=== PATIENT | male | born 1980 | race Hispanic/Latino ===

== ENCOUNTER 2018-10-01 19:42 | Inpatient (IN) | payer OTHER ==
[2018-10-01] MEDS ORDERED: ATIVAN ONE (19:53)
[2018-10-01] MEDS ORDERED: KEPPRA 1,000 MG/NS 0.75% 100ML 1,000 MG/100 ML BAG IV ONE ×2 (19:55→19:56)
[2018-10-01] MEDS ORDERED: NACL 0.9% 1000 ML 1,000 ML IV ONE (19:56)
[2018-10-01] MEDS ORDERED: ATIVAN IV ONE (20:01)
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
[2018-10-01 20:52] LABS: Basophils # (Auto) 0.1 K/mm3 (0.0-0.1); Basophils % (Auto) 0.9 % (0.0-1.8); Eosinophils # (Auto) 0.1 K/mm3 (0.0-0.4); Eosinophils % (Auto) 0.6 % (0.0-4.3); Hematocrit 38.1 % (35.5-45.6); Hemoglobin 12.3 gm/dl (11.8-15.2); Lymphocytes # (Auto) 1.5 K/mm3 (1.2-5.4); Lymphocytes % (Auto) 18.4 % (13.4-35.0); Mean Corpuscular HGB Conc 32 % (32-34); Mean Corpuscular Volume 86 fl (84-94); Monocytes # (Auto) 0.5 K/mm3 (0.0-0.8); Monocytes % (Auto) 5.7 % (0.0-7.3); Platelet Count 247 K/mm3 (140-440); Red Blood Count 4.42 M/mm3 (3.65-5.03); Red Cell Distribution Width 15.6 % (13.2-15.2)
--- NOTE | 2018-10-01 20:57 | Cat Scan Report ---
CT HEAD WITHOUT CONTRAST INDICATION / CLINICAL INFORMATION: Seizures. TECHNIQUE: All CT scans at this location are performed using CT dose reduction for ALARA by means of automated e xposure control. COMPARISON: None available. FINDINGS: HEMORRHAGE: No evidence of intracranial hemorrhage or extra-axial fluid collection. EXTRA-AXIAL SPACES: Cortical sulci, sylvian fissures and basilar cisterns have an unremarkable appear ance. VENTRICULAR SYSTEM: The ventricular system is of normal size and configuration. CEREBRAL PARENCHYMA: No areas of abnormal brain parenchymal attenuation are identified. There is no i ndication of recent infarction. MIDLINE SHIFT OR HERNIATION: There is no mass effect. CEREBELLUM / BRAINSTEM: Brainstem and cerebellum have an unremarkable appearance. INTRACRANIAL VESSELS:No abnormalities are identified on this noncontrast head CT. ORBITS: Findings indicate remote repair of left inferior orbital rim fracture. The orbits have an oth erwise unremarkable appearance. SOFT TISSUES of HEAD: No significant abnormality. CALVARIUM: Evaluation of bone windows reveals no abnormalities. PARANASAL SINUSES / MASTOID AIR CELLS: Paranasal sinuses are free from inflammatory mucosal disease. Mastoid air cells are normally pneumatized. IMPRESSION: 1. No acute intracranial abnormality. Negative head CT without contrast. Signer Name: Darshan Arias MD Signed: 10/01/2018 8:52 PM Workstation Name: [id number]
--- NOTE | 2018-10-01 20:59 | Cat Scan Report ---
CT CERVICAL SPINE WITHOUT CONTRAST INDICATION / CLINICAL INFORMATION: fall, seizures. TECHNIQUE: Axial CT images were obtained through the cervical spine. Sagittal and coronal reformatted images wer e produced. All CT scans at this location are performed using CT dose reduction for ALARA by means of automated exposure control. COMPARISON: None available. FINDINGS: ALIGNMENT: No significant abnormality. VERTEBRAE: No indication of fracture or other osseous abnormality. DISC SPACES: No significant abnormality. CRANIOCERVICAL JUNCTION:No significant abnormality. SPINAL CANAL: No significant abnormality. Central spinal canal is adequately maintained throughout th e cervical region. PARASPINAL SOFT TISSUES: No significant abnormality. ADDITIONAL FINDINGS: None. LUNG APICES: No significant abnormality of visualized lungs. IMPRESSION: 1. No abnormality identified on CT cervical spine. Signer Name: Darshan Arias MD Signed: 10/01/2018 8:55 PM Workstation Name: [id number]
[2018-10-01 21:17] LABS: Bilirubin,Urine NEG (Negative); Blood,Urine NEG (Negative); Calcium Oxalate Crystals,Urine FEW; Color,Urine Yellow (Yellow); Mucus,Urine FEW /HPF; Protein,Urine <15 mg/dL mg/dL (Negative); Urobilinogen,Urine < 2.0 mg/dL (<2.0)
[2018-10-01 21:24] LABS: Amphetamine Screen,Urine PRESUMPTIVE NEGATIVE; Cannabinoid Screen,Urine PRESUMPTIVE NEGATIVE; Cocaine Screen,Urine PRESUMPTIVE NEGATIVE; Methadone Screen,Urine PRESUMPTIVE NEGATIVE; Opiate Screen,Urine PRESUMPTIVE NEGATIVE
[2018-10-01 21:25] LABS: Alanine Aminotransferase 20 units/L (7-56); BUN/Creatinine Ratio 15; Blood Urea Nitrogen 15 mg/dL (9-20); Calcium 8.9 mg/dL (8.4-10.2); Hemolysis Index 36
[2018-10-01 22:01] LABS: Benzodiazepines Screen,Urine PRESUMPTIVE POSITIVE
[2018-10-01] MEDS ORDERED: ZOFRAN IV PRN (23:03)
[2018-10-01] MEDS: TYLENOL PO PRN (23:23)
[2018-10-02] MEDS ORDERED: NEURONTIN PO ONE (01:51)
[2018-10-02] MEDS ORDERED: NEURONTIN PO SCH (02:00)
[2018-10-02] MEDS: ATIVAN IV PRN ×2 (02:11→17:27)
[2018-10-02] MEDS ORDERED: NON-FORMULARY (Clonazepam [Klonopin] 2 MG) PO SCH (02:30)
--- NOTE | 2018-10-02 05:21 | History and Physical Report ---
CHIEF COMPLAINT: Seizure attack. HISTORY OF PRESENTING ILLNESS: The patient is a 38-year-old male, who was noted to be having seizure attack at the pharmacy across the street from the hospital and had recurrent attacks and was brought in by EMS and continued to have seizure attack in the Emergency Room. The patient admitted to missing his medications for about 3 days that included the seizure medications, and said he ran out for a period of 3 days, and then started having the seizure attack. The patient said he had not had any seizure in 6 months until 10/01/2018. There was no history of fever or chills and no history of injury to the body or facial area. The patient denied history of ingestion of alcohol prior to the seizure attack. PAST MEDICAL HISTORY: Pertinent for seizure disorder. PAST SURGICAL HISTORY: Unremarkable. FAMILY HISTORY: Noncontributory. SOCIAL HISTORY: The patient denies use of illicit drugs. Denies alcohol ingestion or cigarette smoking. MEDICATIONS: The patient's medications include baclofen 20 mg by mouth 3 times daily, buprenorphine 8 mg sublingual t.i.d. The patient is also on clonazepam 2 mg by mouth twice daily, gabapentin 800 mg by mouth 3 times daily, Paxil 20 mg by mouth daily, and Seroquel 20 mg by mouth daily, as well as Benadryl 50 mg by mouth daily. ALLERGIES: THE PATIENT IS ALLERGIC TO PENICILLIN, PHENYTOIN, AND CHLORPROMAZINE. REVIEW OF SYSTEMS: CONSTITUTIONAL: There is no fever, no chills, no diaphoresis. HEENT: There is no headache or sore throat. CARDIOVASCULAR SYSTEM: There is no chest pain or orthopnea. RESPIRATORY SYSTEM: There is no shortness of breath or cough. GASTROINTESTINAL SYSTEM: There is no nausea, no vomiting, no abdominal pain, diarrhea or constipation. NEUROLOGICAL SYSTEM: There is no numbness, no dizziness. Seizure attack noted and change in mental status following seizure attack noted. MUSCULOSKELETAL SYSTEM: There is no joint pain or swelling. DERMATOLOGICAL SYSTEM: There is no skin rash, no skin bruises, and no itching. GENITOURINARY SYSTEM: There is no dysuria or hematuria or flank pain. Rest of system review is normal. PHYSICAL EXAMINATION: GENERAL: At the time of exam, the patient was found to be alert, oriented x 3 and not in acute distress. VITAL SIGNS: At the initial time of presentation, show pulse of 110, respirations 13, blood pressure 133/83, O2 sat of 97% on room air. HEENT: Showed pupils to be equal, round, reactive to light and accommodating and the head is normocephalic, atraumatic. NECK: Supple with no JVD or carotid bruit. CARDIOVASCULAR SYSTEM: Showed normal first and second heart sounds with no gallops or murmurs. RESPIRATORY SYSTEM: Showed good air entry on both sides of the lungs with no abnormal breath sounds. GASTROINTESTINAL SYSTEM: Show abdomen to be full, soft, nontender with no organomegaly or rigidity. NEUROLOGIC: Shows no focal deficit. MUSCULOSKELETAL SYSTEM: Show no joint swelling or tenderness. DERMATOLOGICAL SYSTEM: Show no skin rash or bruises. GENITOURINARY SYSTEM: Show no costovertebral angle tenderness. PERTINENT LABORATORY AND IMAGING STUDIES: The patient had a CT of the head without contrast done that shows no acute intracranial abnormality. Also, the patient has CT of the cervical spine without contrast that shows no abnormality. The patient's lab result shows a CBC, which was unremarkable except for slight increase in segmented neutrophil on CBC differential. The patient's chemistry shows slightly increasing chloride level of 109.6, otherwise unremarkable. The patient's urinalysis showed high specific gravity of 1.032 with rest of urinalysis being unremarkable. Toxicology screen is positive for benzodiazepine. The patient's alcohol level is unremarkable. DIAGNOSIS: Postictal state or post-seizure state. PLAN OF CARE: 1. The patient will be admitted to telemetry. 2. The patient will be on IV Ativan 1 mg every 2 hours as needed for seizure attack. 3. The patient will be on p.r.n. medications like Tylenol 650 mg by mouth every 4 hours for fever and headache and IV Zofran 4 mg every 8 hours for nausea and vomiting. 4. The patient will be on his home medication as shown in the medication reconciliation section. 5. The patient's DVT prophylaxis will be through sequential compressive device and the patient will have neurology consult when available since neurology rounds and not done during weekends. JOB# [id number] OCN/NTS
[2018-10-02] MEDS: LIORESAL PO SCH ×3 (06:03→21:10)
[2018-10-02] MEDS ORDERED: BACLOFEN 20 MG PO SCH (08:00)
[2018-10-02] MEDS ORDERED: NON-FORMULARY (Gabapentin [Neurontin] 800 MG) PO SCH (08:00)
[2018-10-02] MEDS: PAXIL PO SCH (09:24)
[2018-10-02] MEDS: NEURONTIN PO SCH ×3 (09:24→21:09)
[2018-10-02] MEDS ORDERED: KEPPRA PO SCH (10:00)
[2018-10-02] MEDS ORDERED: PAXIL 20 MG PO SCH (10:00)
[2018-10-02] MEDS: SUBUTEX SL SCH ×3 (10:37→21:13)
--- NOTE | 2018-10-02 15:27 | Progress Note ---
Assessment and Plan - Patient Problems (1) Recurrent seizures Current Visit: Yes Status: Acute Plan to address problem: Recurrent seizure disorder. Patient now being started on Keppra. Would titrate as needed. Ativan when necessary for seizure. Has not needed any in the past 12 hours. Continue Keppra at this point. Titrate to therapeutic levels. Cervical CT head CT unremarkable. History Interval history: Patient states he had an additional seizure over the nighttime. Nervous about having another one tonight. Hospitalist Physical - Constitutional Vitals: Temp Pulse Resp BP Pulse Ox 98.4 F 77 14 118/80 95 10/02/18 12:55 10/02/18 12:55 10/02/18 12:55 10/02/18 12:55 10/02/18 12:55 General appearance: Present: no acute distress - EENT Eyes: Present: PERRL, EOM intact ENT: hearing intact, clear oral mucosa, dentition normal - Neck Neck: Present: supple, normal ROM - Respiratory Respiratory: bilateral: CTA - Cardiovascular Rhythm: regular - Extremities Extremities: no ischemia, pulses intact, pulses symmetrical, No edema, normal temperature - Abdominal General gastrointestinal: soft, non-tender, non-distended, normal bowel sounds - Integumentary Integumentary: Present: clear, warm, dry - Psychiatric Psychiatric: appropriate mood/affect, intact judgment & insight, memory intact - Neurologic Neurologic: CNII-XII intact, focal deficits, moves all extremities Results - Labs CBC & Chem 7: 10/01/18 20:33 10/01/18 20:33 Labs: Laboratory Last Values WBC 8.2 K/mm3 (4.5-11.0) 10/01/18 20:33 RBC 4.42 M/mm3 (3.65-5.03) 10/01/18 20:33 Hgb 12.3 gm/dl (11.8-15.2) 10/01/18 20:33 Hct 38.1 % (35.5-45.6) 10/01/18 20:33 MCV 86 fl (84-94) 10/01/18 20:33 MCH 28 pg (28-32) 10/01/18 20:33 MCHC 32 % (32-34) 10/01/18 20:33 RDW 15.6 % (13.2-15.2) H 10/01/18 20:33 Plt Count 247 K/mm3 (140-440) 10/01/18 20:33 Lymph % (Auto) 18.4 % (13.4-35.0) 10/01/18 20:33 [place] % (Auto) 5.7 % (0.0-7.3) 10/01/18 20:33 Eos % (Auto) 0.6 % (0.0-4.3) 10/01/18 20:33 Baso % (Auto) 0.9 % (0.0-1.8) 10/01/18 20:33 Lymph # 1.5 K/mm3 (1.2-5.4) 10/01/18 20:33 [place] # 0.5 K/mm3 (0.0-0.8) 10/01/18 20:33 Eos # 0.1 K/mm3 (0.0-0.4) 10/01/18 20:33 Baso # 0.1 K/mm3 (0.0-0.1) 10/01/18 20:33 Seg Neutrophils % 74.4 % (40.0-70.0) H 10/01/18 20:33 Seg Neutrophils # 6.1 K/mm3 (1.8-7.7) 10/01/18 20:33 Sodium 143 mmol/L (137-145) 10/01/18 20:33 Potassium 3.8 mmol/L (3.6-5.0) 10/01/18 20:33 Chloride 109.6 mmol/L (98-107) H 10/01/18 20:33 Carbon Dioxide 22 mmol/L (22-30) 10/01/18 20:33 15 mmol/L 10/01/18 20:33 BUN 15 mg/dL (9-20) 10/01/18 20:33 1.0 mg/dL (0.8-1.5) 10/01/18 20:33 Estimated GFR > 60 ml/min 10/01/18 20:33 15 % 10/01/18 20:33 Glucose 83 mg/dL (75-100) 10/01/18 20:33 Calcium 8.9 mg/dL (8.4-10.2) 10/01/18 20:33 < 0.20 mg/dL (0.1-1.2) 10/01/18 20:33 AST 15 units/L (5-40) 10/01/18 20:33 ALT 20 units/L (7-56) 10/01/18 20:33 73 units/L (35-129) 10/01/18 20:33 46.0 umol/L (25-60) 10/01/18 20:33 78 units/L (55-170) 10/01/18 20:33 6.7 g/dL (6.3-8.2) 10/01/18 20:33 4.0 g/dL (3.9-5) 10/01/18 20:33 1.5 % 10/01/18 20:33 TSH 1.400 mlU/mL (0.270-4.200) 10/01/18 20:33 Yellow (Yellow) 10/01/18 21:00 Clear (Clear) 10/01/18 21:00 5.0 (5.0-7.0) 10/01/18 21:00 Ur Specific [place] 1.032 (1.003-1.030) H 10/01/18 21:00 <15 mg/dl mg/dL (Negative) 10/01/18 21:00 Neg mg/dL (Negative) 10/01/18 21:00 Neg mg/dL (Negative) 10/01/18 21:00 Neg (Negative) 10/01/18 21:00 Neg (Negative) 10/01/18 21:00 Neg (Negative) 10/01/18 21:00 < 2.0 mg/dL (<2.0) 10/01/18 21:00 Ur Leukocyte Esterase Neg (Negative) 10/01/18 21:00 1.0 /HPF (0.0-6.0) 10/01/18 21:00 2.0 /HPF (0.0-6.0) 10/01/18 21:00 Calcium Oxalate Crystal Few 10/01/18 21:00 Few /HPF 10/01/18 21:00 Salicylates 2.8 mg/dL (2.8-20.0) 10/01/18 20:33 Presumptive negative 10/01/18 21:00 Presumptive negative 10/01/18 21:00 Acetaminophen < 5.0 ug/mL (10.0-30.0) L 10/01/18 20:33 Ur Barbiturates Screen Presumptive negative 10/01/18 21:00 Ur Phencyclidine Scrn Presumptive negative 10/01/18 21:00 Ur Amphetamines Screen Presumptive negative 10/01/18 21:00 U Benzodiazepines Scrn Presumptive positive 10/01/18 21:00 Presumptive negative 10/01/18 21:00 U Marijuana (THC) Screen Presumptive negative 10/01/18 21:00 Disclamer 10/01/18 21:00 Plasma/Serum Alcohol < 0.01 % (0-0.07) 10/01/18 20:33 Active Medications - Current Medications Current Medications: Generic Name Dose Route Start Last Admin Trade Name Freq PRN Reason Stop Dose Admin Acetaminophen 650 mg 10/01/18 23:01 10/01/18 23:23 Tylenol PO 650 mg Q4H PRN Administration Headache Baclofen 20 mg 10/02/18 06:00 10/02/18 06:03 Lioresal PO 20 mg Q8HR DARIAN Administration Buprenorphine HCl 8 mg 10/02/18 08:00 10/02/18 10:37 Subutex SL 8 mg TID DARIAN Administration Clonazepam 2 mg 10/02/18 10:00 10/02/18 09:24 Klonopin PO 2 mg BID DARIAN Administration Gabapentin 800 mg 10/02/18 08:00 10/02/18 09:24 Neurontin PO 800 mg TID DARIAN Administration Gabapentin 800 mg 10/02/18 02:00 10/02/18 02:10 Neurontin PO 800 mg ONCE DARIAN Administration Lorazepam 1 mg 10/01/18 23:02 10/02/18 02:11 Ativan IV 1 mg Q2H PRN Administration Seizures Ondansetron HCl 4 mg 10/01/18 23:03 Zofran IV Q8H PRN Nausea And Vomiting Paroxetine HCl 20 mg 10/02/18 10:00 10/02/18 09:24 Paxil PO 20 mg DAILY DARIAN Administration Quetiapine Fumarate 25 mg 10/02/18 22:00 Seroquel PO QHS DARIAN
[2018-10-02] MEDS: TYLENOL PO PRN (15:33)
[2018-10-02] MEDS: BENADRYL PO PRN (21:11)
[2018-10-03] MEDS: LIORESAL PO SCH ×3 (05:19→22:30)
[2018-10-03] MEDS: NEURONTIN PO SCH ×3 (08:27→20:30)
[2018-10-03] MEDS: SUBUTEX SL SCH ×3 (08:27→20:32)
[2018-10-03] MEDS: TYLENOL PO PRN ×2 (08:30→12:31)
[2018-10-03] MEDS: PAXIL PO SCH (09:14)
[2018-10-03] MEDS: ATIVAN IV PRN ×2 (12:05→16:40)
[2018-10-03] MEDS: BENADRYL PO PRN ×2 (12:32→20:30)
--- NOTE | 2018-10-03 16:22 | Progress Note ---
Assessment and Plan - Patient Problems (1) Recurrent seizures Current Visit: Yes Status: Acute Plan to address problem: She'll with another seizure today. We'll continue Keppra 500 mg twice a day in addition. Await any neurology recommendations. (2) Depression Current Visit: Yes Status: Acute Plan to address problem: She currently denies depression continue SSRI (3) Headache Current Visit: Yes Status: Acute Plan to address problem: No focal neurologic deficits. Headache most likely secondary to the seizure. We'll continue Ativan For seizure Fioricet for headache. Need to probably discontinue baclofen also a lower seizure threshold History Interval history: Patient had an additional seizure at 1145 today. Given Ativan symptoms appear to be controlled. Patient states now she agrees to wear nicotine patch. Also complained of headache and pain. The headache. Note the patient was on Subutex for narcotic abuse. Would treat patient with tramadol vs fiorcet Hospitalist Physical - Constitutional Vitals: Temp Pulse Resp BP Pulse Ox 98.0 F 72 19 130/84 99 10/03/18 16:16 10/03/18 16:16 10/03/18 16:16 10/03/18 16:16 10/03/18 16:16 General appearance: Present: no acute distress - EENT Eyes: Present: PERRL, EOM intact ENT: hearing intact, clear oral mucosa, dentition normal - Neck Neck: Present: supple, normal ROM - Respiratory Respiratory effort: normal Respiratory: bilateral: CTA - Cardiovascular Rhythm: regular Heart Sounds: Present: S1 & S2 - Extremities Extremities: no ischemia, pulses intact, pulses symmetrical, No edema, normal temperature, normal color, Full ROM Peripheral Pulses: within normal limits - Abdominal General gastrointestinal: soft, non-tender, non-distended, normal bowel sounds - Integumentary Integumentary: Present: clear, warm, dry - Psychiatric Psychiatric: appropriate mood/affect, intact judgment & insight, memory intact - Neurologic Neurologic: CNII-XII intact, focal deficits, moves all extremities Results - Labs CBC & Chem 7: 10/01/18 20:33 10/01/18 20:33 Labs: Laboratory Last Values WBC 8.2 K/mm3 (4.5-11.0) 10/01/18 20:33 RBC 4.42 M/mm3 (3.65-5.03) 10/01/18 20:33 Hgb 12.3 gm/dl (11.8-15.2) 10/01/18 20:33 Hct 38.1 % (35.5-45.6) 10/01/18 20:33 MCV 86 fl (84-94) 10/01/18 20:33 MCH 28 pg (28-32) 10/01/18 20:33 MCHC 32 % (32-34) 10/01/18 20:33 RDW 15.6 % (13.2-15.2) H 10/01/18 20:33 Plt Count 247 K/mm3 (140-440) 10/01/18 20:33 Lymph % (Auto) 18.4 % (13.4-35.0) 10/01/18 20:33 [place] % (Auto) 5.7 % (0.0-7.3) 10/01/18 20:33 Eos % (Auto) 0.6 % (0.0-4.3) 10/01/18 20:33 Baso % (Auto) 0.9 % (0.0-1.8) 10/01/18 20:33 Lymph # 1.5 K/mm3 (1.2-5.4) 10/01/18 20:33 [place] # 0.5 K/mm3 (0.0-0.8) 10/01/18 20:33 Eos # 0.1 K/mm3 (0.0-0.4) 10/01/18 20:33 Baso # 0.1 K/mm3 (0.0-0.1) 10/01/18 20:33 Seg Neutrophils % 74.4 % (40.0-70.0) H 10/01/18 20:33 Seg Neutrophils # 6.1 K/mm3 (1.8-7.7) 10/01/18 20:33 Sodium 143 mmol/L (137-145) 10/01/18 20:33 Potassium 3.8 mmol/L (3.6-5.0) 10/01/18 20:33 Chloride 109.6 mmol/L (98-107) H 10/01/18 20:33 Carbon Dioxide 22 mmol/L (22-30) 10/01/18 20:33 15 mmol/L 10/01/18 20:33 BUN 15 mg/dL (9-20) 10/01/18 20:33 1.0 mg/dL (0.8-1.5) 10/01/18 20:33 Estimated GFR > 60 ml/min 10/01/18 20:33 15 % 10/01/18 20:33 Glucose 83 mg/dL (75-100) 10/01/18 20:33 Calcium 8.9 mg/dL (8.4-10.2) 10/01/18 20:33 < 0.20 mg/dL (0.1-1.2) 10/01/18 20:33 AST 15 units/L (5-40) 10/01/18 20:33 ALT 20 units/L (7-56) 10/01/18 20:33 73 units/L (35-129) 10/01/18 20:33 46.0 umol/L (25-60) 10/01/18 20:33 78 units/L (55-170) 10/01/18 20:33 6.7 g/dL (6.3-8.2) 10/01/18 20:33 4.0 g/dL (3.9-5) 10/01/18 20:33 1.5 % 10/01/18 20:33 TSH 1.400 mlU/mL (0.270-4.200) 10/01/18 20:33 Yellow (Yellow) 10/01/18 21:00 Clear (Clear) 10/01/18 21:00 5.0 (5.0-7.0) 10/01/18 21:00 Ur Specific [place] 1.032 (1.003-1.030) H 10/01/18 21:00 <15 mg/dl mg/dL (Negative) 10/01/18 21:00 Neg mg/dL (Negative) 10/01/18 21:00 Neg mg/dL (Negative) 10/01/18 21:00 Neg (Negative) 10/01/18 21:00 Neg (Negative) 10/01/18 21:00 Neg (Negative) 10/01/18 21:00 < 2.0 mg/dL (<2.0) 10/01/18 21:00 Ur Leukocyte Esterase Neg (Negative) 10/01/18 21:00 1.0 /HPF (0.0-6.0) 10/01/18 21:00 2.0 /HPF (0.0-6.0) 10/01/18 21:00 Calcium Oxalate Crystal Few 10/01/18 21:00 Few /HPF 10/01/18 21:00 Salicylates 2.8 mg/dL (2.8-20.0) 10/01/18 20:33 Presumptive negative 10/01/18 21:00 Presumptive negative 10/01/18 21:00 Acetaminophen < 5.0 ug/mL (10.0-30.0) L 10/01/18 20:33 Ur Barbiturates Screen Presumptive negative 10/01/18 21:00 Ur Phencyclidine Scrn Presumptive negative 10/01/18 21:00 Ur Amphetamines Screen Presumptive negative 10/01/18 21:00 U Benzodiazepines Scrn Presumptive positive 10/01/18 21:00 Presumptive negative 10/01/18 21:00 U Marijuana (THC) Screen Presumptive negative 10/01/18 21:00 Disclamer 10/01/18 21:00 Plasma/Serum Alcohol < 0.01 % (0-0.07) 10/01/18 20:33 Active Medications - Current Medications Current Medications: Generic Name Dose Route Start Last Admin Trade Name Freq PRN Reason Stop Dose Admin Acetaminophen 650 mg 10/01/18 23:01 10/03/18 12:31 Tylenol PO 650 mg Q4H PRN Administration Headache Baclofen 20 mg 10/02/18 06:00 10/03/18 13:59 Lioresal PO 20 mg Q8HR DARIAN Administration Buprenorphine HCl 8 mg 10/02/18 08:00 10/03/18 13:59 Subutex SL 8 mg TID DARIAN Administration Clonazepam 2 mg 10/02/18 10:00 10/03/18 09:14 Klonopin PO 2 mg BID DARIAN Administration Diphenhydramine HCl 100 mg 10/02/18 19:31 10/03/18 12:32 Benadryl PO 100 mg QHS PRN Administration Sleep Gabapentin 800 mg 10/02/18 08:00 10/03/18 14:00 Neurontin PO 800 mg TID DARIAN Administration Gabapentin 800 mg 10/02/18 02:00 10/02/18 02:10 Neurontin PO 800 mg ONCE DARIAN Administration Lorazepam 1 mg 10/01/18 23:02 10/03/18 12:05 Ativan IV 1 mg Q2H PRN Administration Seizures Ondansetron HCl 4 mg 10/01/18 23:03 Zofran IV Q8H PRN Nausea And Vomiting Paroxetine HCl 20 mg 10/02/18 10:00 10/03/18 09:14 Paxil PO 20 mg DAILY DARIAN Administration Quetiapine Fumarate 25 mg 10/02/18 22:00 10/02/18 21:11 Seroquel PO 25 mg QHS DARIAN Administration
[2018-10-03] MEDS: FIORICET PO PRN ×2 (16:50→20:32)
[2018-10-03] MEDS ORDERED: HABITROL TD ONE (17:20)
--- NOTE | 2018-10-03 17:34 | Progress Note ---
Subjective Date of service: 10/03/18 Interval history: witnerssed seizures and CT of head normal will check EEG thursday agree with w/u will follow up Objective - Vital Sign Vital Signs - 12hr 10/03/18 10/03/18 10/03/18 08:00 10:00 11:51 Temperature 97.7 F Pulse Rate 81 64 69 Pulse Rate [ 81 Apical] Pulse Rate [ 81 Left Radial] Pulse Rate [ 81 Right Radial] Respiratory 16 19 Rate Blood Pressure 109/70 123/71 Blood Pressure [Left] O2 Sat by Pulse 97 98 99 Oximetry 10/03/18 10/03/18 10/03/18 12:00 16:02 16:16 Temperature 98.0 F 98.0 F Pulse Rate 72 69 72 Pulse Rate [ Apical] Pulse Rate [ Left Radial] Pulse Rate [ Right Radial] Respiratory 19 19 Rate Blood Pressure 130/84 Blood Pressure 123/71 130/84 [Left] O2 Sat by Pulse 96 99 Oximetry - Laboratory Findings CBC and BMP: 10/01/18 20:33 10/01/18 20:33 Abnormal Lab Findings: Abnormal Labs 10/01/18 10/01/18 10/01/18 20:33 20:33 20:33 RDW 15.6 H Seg Neutrophils % 74.4 H Chloride 109.6 H Ur Specific [place] Acetaminophen < 5.0 L 10/01/18 21:00 RDW Seg Neutrophils % Chloride Ur Specific [place] 1.032 H Acetaminophen
[2018-10-03] MEDS: KEPPRA PO SCH (22:30)
[2018-10-04] MEDS: FIORICET PO PRN ×4 (05:01→21:35)
[2018-10-04] MEDS: LIORESAL PO SCH ×3 (06:53→21:35)
[2018-10-04] MEDS: NEURONTIN PO SCH ×3 (09:25→20:26)
[2018-10-04] MEDS: SUBUTEX SL SCH ×4 (09:26→20:59)
[2018-10-04] MEDS: KEPPRA PO SCH ×2 (09:26→21:36)
[2018-10-04] MEDS: PAXIL PO SCH (09:26)
[2018-10-04] MEDS: ATIVAN IV PRN ×2 (10:38→20:05)
--- NOTE | 2018-10-04 10:43 | Progress Note ---
Assessment and Plan Assessment and plan: 38-year-old male was admitted to emergency department with history of patient having some witnessed seizures outside in the parking lot. The patient is also had multiple seizures since arrival to the emergency department, also witnessed by ER staff. The patient is evaluated by neurology , seizure precautions , antiepileptic medications , pending EEG --Recurrent seizures Current Visit: Yes Status: Acute Plan to address problem: Patient had some seizures yesterday ,continue Keppra 500 mg twice a day in addition. Neurology evaluation noted and appreciated, follow EEG Patient cannot drive --History of Depression Current Visit: Yes Status: Acute Plan to address problem: She currently denies depression continue SSRI Denies suicidal thoughts or ideation --Headache; postictal symptoms Current Visit: Yes Status: Acute Plan to address problem: continue supportive care, no neurologic deficit --DVT prophylaxis; Lovenox Follow EEG and neuro recommendations Disposition ;Possible discharge in 1-2 days if stable History Interval history: She was admitted with weakness seizures Continues to have intermittent seizures in the hospital On antiepileptic medications Patient is alert and oriented 3 Complaints of some vague headache Vital signs noted Hospitalist Physical - Constitutional Vitals: Temp Pulse Resp BP Pulse Ox 97.2 F L 72 16 113/76 98 10/04/18 07:31 10/04/18 07:31 10/04/18 07:31 10/04/18 07:31 10/04/18 07:31 General appearance: Present: no acute distress, well-nourished - EENT Eyes: Present: PERRL, EOM intact - Neck Neck: Present: supple, normal ROM - Respiratory Respiratory effort: normal Respiratory: bilateral: diminished, negative: rales, rhonchi, wheezing - Cardiovascular Rhythm: regular Heart Sounds: Present: S1 & S2 - Extremities Extremities: no ischemia, No edema - Abdominal General gastrointestinal: soft, non-tender, non-distended, normal bowel sounds - Integumentary Integumentary: Present: clear, warm - Psychiatric Psychiatric: appropriate mood/affect, cooperative - Neurologic Neurologic: CNII-XII intact, moves all extremities Results - Labs CBC & Chem 7: 10/01/18 20:33 10/01/18 20:33 Labs: Laboratory Last Values WBC 8.2 K/mm3 (4.5-11.0) 10/01/18 20:33 RBC 4.42 M/mm3 (3.65-5.03) 10/01/18 20:33 Hgb 12.3 gm/dl (11.8-15.2) 10/01/18 20:33 Hct 38.1 % (35.5-45.6) 10/01/18 20:33 MCV 86 fl (84-94) 10/01/18 20:33 MCH 28 pg (28-32) 10/01/18 20:33 MCHC 32 % (32-34) 10/01/18 20:33 RDW 15.6 % (13.2-15.2) H 10/01/18 20:33 Plt Count 247 K/mm3 (140-440) 10/01/18 20:33 Lymph % (Auto) 18.4 % (13.4-35.0) 10/01/18 20:33 [place] % (Auto) 5.7 % (0.0-7.3) 10/01/18 20:33 Eos % (Auto) 0.6 % (0.0-4.3) 10/01/18 20:33 Baso % (Auto) 0.9 % (0.0-1.8) 10/01/18 20:33 Lymph # 1.5 K/mm3 (1.2-5.4) 10/01/18 20:33 [place] # 0.5 K/mm3 (0.0-0.8) 10/01/18 20:33 Eos # 0.1 K/mm3 (0.0-0.4) 10/01/18 20:33 Baso # 0.1 K/mm3 (0.0-0.1) 10/01/18 20:33 Seg Neutrophils % 74.4 % (40.0-70.0) H 10/01/18 20:33 Seg Neutrophils # 6.1 K/mm3 (1.8-7.7) 10/01/18 20:33 Sodium 143 mmol/L (137-145) 10/01/18 20:33 Potassium 3.8 mmol/L (3.6-5.0) 10/01/18 20:33 Chloride 109.6 mmol/L (98-107) H 10/01/18 20:33 Carbon Dioxide 22 mmol/L (22-30) 10/01/18 20:33 15 mmol/L 10/01/18 20:33 BUN 15 mg/dL (9-20) 10/01/18 20:33 1.0 mg/dL (0.8-1.5) 10/01/18 20:33 Estimated GFR > 60 ml/min 10/01/18 20:33 15 % 10/01/18 20:33 Glucose 83 mg/dL (75-100) 10/01/18 20:33 Calcium 8.9 mg/dL (8.4-10.2) 10/01/18 20:33 < 0.20 mg/dL (0.1-1.2) 10/01/18 20:33 AST 15 units/L (5-40) 10/01/18 20:33 ALT 20 units/L (7-56) 10/01/18 20:33 73 units/L (35-129) 10/01/18 20:33 46.0 umol/L (25-60) 10/01/18 20:33 78 units/L (55-170) 10/01/18 20:33 6.7 g/dL (6.3-8.2) 10/01/18 20:33 4.0 g/dL (3.9-5) 10/01/18 20:33 1.5 % 10/01/18 20:33 TSH 1.400 mlU/mL (0.270-4.200) 10/01/18 20:33 Yellow (Yellow) 10/01/18 21:00 Clear (Clear) 10/01/18 21:00 5.0 (5.0-7.0) 10/01/18 21:00 Ur Specific [place] 1.032 (1.003-1.030) H 10/01/18 21:00 <15 mg/dl mg/dL (Negative) 10/01/18 21:00 Neg mg/dL (Negative) 10/01/18 21:00 Neg mg/dL (Negative) 10/01/18 21:00 Neg (Negative) 10/01/18 21:00 Neg (Negative) 10/01/18 21:00 Neg (Negative) 10/01/18 21:00 < 2.0 mg/dL (<2.0) 10/01/18 21:00 Ur Leukocyte Esterase Neg (Negative) 10/01/18 21:00 1.0 /HPF (0.0-6.0) 10/01/18 21:00 2.0 /HPF (0.0-6.0) 10/01/18 21:00 Calcium Oxalate Crystal Few 10/01/18 21:00 Few /HPF 10/01/18 21:00 Salicylates 2.8 mg/dL (2.8-20.0) 10/01/18 20:33 Presumptive negative 10/01/18 21:00 Presumptive negative 10/01/18 21:00 Acetaminophen < 5.0 ug/mL (10.0-30.0) L 10/01/18 20:33 Ur Barbiturates Screen Presumptive negative 10/01/18 21:00 Ur Phencyclidine Scrn Presumptive negative 10/01/18 21:00 Ur Amphetamines Screen Presumptive negative 10/01/18 21:00 U Benzodiazepines Scrn Presumptive positive 10/01/18 21:00 Presumptive negative 10/01/18 21:00 U Marijuana (THC) Screen Presumptive negative 10/01/18 21:00 Disclamer 10/01/18 21:00 Plasma/Serum Alcohol < 0.01 % (0-0.07) 10/01/18 20:33 Active Medications - Current Medications Current Medications: Generic Name Dose Route Start Last Admin Trade Name Freq PRN Reason Stop Dose Admin Acetaminophen 650 mg 10/01/18 23:01 10/03/18 12:31 Tylenol PO 650 mg Q4H PRN Administration Headache Acetaminophen/Butalbital/Caffeine 1 tab 10/03/18 16:22 10/04/18 09:25 Fioricet PO 1 tab Q4H PRN Administration Headache Baclofen 20 mg 10/02/18 06:00 10/04/18 06:53 Lioresal PO 20 mg Q8HR DARIAN Administration Buprenorphine HCl 8 mg 10/02/18 08:00 10/04/18 09:31 Subutex SL 8 mg TID DARIAN Administration Clonazepam 2 mg 10/02/18 10:00 10/04/18 09:26 Klonopin PO 2 mg BID DARIAN Administration Diphenhydramine HCl 100 mg 10/02/18 19:31 10/03/18 20:30 Benadryl PO 100 mg QHS PRN Administration Sleep Gabapentin 800 mg 10/02/18 08:00 10/04/18 09:25 Neurontin PO 800 mg TID DARIAN Administration Gabapentin 800 mg 10/02/18 02:00 10/02/18 02:10 Neurontin PO 800 mg ONCE DARIAN Administration Levetiracetam 500 mg 10/03/18 22:00 10/04/18 09:26 Keppra PO 500 mg BID DARIAN Administration Lorazepam 1 mg 10/01/18 23:02 10/04/18 10:38 Ativan IV 1 mg Q2H PRN Administration Seizures Ondansetron HCl 4 mg 10/01/18 23:03 Zofran IV Q8H PRN Nausea And Vomiting Paroxetine HCl 20 mg 10/02/18 10:00 10/04/18 09:26 Paxil PO 20 mg DAILY DARIAN Administration Quetiapine Fumarate 25 mg 10/02/18 22:00 10/03/18 22:30 Seroquel PO 25 mg QHS DARIAN Administration
[2018-10-04] MEDS: HABITROL TD SCH (12:11)
[2018-10-04] MEDS: PERCOCET 5/325 PO PRN ×2 (12:13→20:26)
[2018-10-04] MEDS: BENADRYL PO PRN (22:01)
[2018-10-05] MEDS: PERCOCET 5/325 PO PRN ×2 (06:06→14:59)
[2018-10-05] MEDS: LIORESAL PO SCH ×2 (06:07→14:51)
--- NOTE | 2018-10-05 07:52 | Progress Note ---
Subjective Date of service: 09/28/18 Interval history: OK to discharge to psych facility since on subutex he can go on klonopen and neurontin to control seizures... suspect drug with drawal created the seizure I did not the normal CT of head which mitigates against dx of sz caused by brain injury Objective - Vital Sign Vital Signs - 12hr 10/04/18 10/04/18 10/04/18 20:00 20:12 22:00 Temperature 98.2 F Pulse Rate 76 80 Pulse Rate [ 78 Apical] Pulse Rate [ 78 Left Radial] Pulse Rate [ 78 Right Radial] Respiratory 20 18 Rate Blood Pressure 137/77 Blood Pressure [Left] O2 Sat by Pulse 97 97 Oximetry 10/04/18 10/05/18 10/05/18 23:12 04:00 04:33 Temperature 97.8 F 97.9 F Pulse Rate 76 83 83 Pulse Rate [ Apical] Pulse Rate [ Left Radial] Pulse Rate [ Right Radial] Respiratory 16 18 Rate Blood Pressure 131/75 Blood Pressure 121/78 [Left] O2 Sat by Pulse 94 96 Oximetry - Laboratory Findings CBC and BMP: 10/01/18 20:33 10/01/18 20:33 Abnormal Lab Findings: Abnormal Labs 10/01/18 10/01/18 10/01/18 20:33 20:33 20:33 RDW 15.6 H Seg Neutrophils % 74.4 H Chloride 109.6 H Ur Specific [place] Acetaminophen < 5.0 L 10/01/18 21:00 RDW Seg Neutrophils % Chloride Ur Specific [place] 1.032 H Acetaminophen
[2018-10-05] MEDS: NEURONTIN PO SCH ×2 (08:15→14:54)
[2018-10-05] MEDS: SUBUTEX SL SCH ×2 (08:15→14:51)
[2018-10-05] MEDS: FIORICET PO PRN (08:18)
--- NOTE | 2018-10-05 09:26 | Discharge Summary ---
Providers - Providers Date of Admission: 10/01/18 22:59 Date of discharge: 10/05/18 Attending physician: ROBERTO MG 10/03/18 16:23 Consult to Physician [CONS] Routine Comment: Consulting Provider: TRIPP ANTHONY Physician Instructions: Reason For Exam: seizure [facility] Reason for admission: sz d/o Condition: Fair Hospital course: 38-year-old male was admitted to emergency department with history of patient having some witnessed seizures outside in the parking lot. The patient also had multiple seizures since arrival to the emergency department, also witnessed by ER staff. The patient was evaluated by neurology, placed on seizure precautions and received antiepileptic medications. Neurology suspected drug withdrawals cause of the seizures. Neurology feels that normal CT of the heel mitigates against diagnosis of seizure caused by brain injury. Patient is to discharge and follow up at psych facility for her depression. Patient has had no further seizure activity. Dedicated discharge time 32 minutes. Disposition: - TO HOME OR SELFCARE Time spent for discharge: 32 - Discharge Diagnoses (1) Depression Status: Acute (2) Headache Status: Acute (3) Recurrent seizures Status: Acute (4) Seizure disorder Status: Acute Core Measure Documentation - Palliative Care Palliative Care/ Comfort Measures: Not Applicable - Core Measures Any of the following diagnoses?: none Exam - Constitutional Vitals: Temp Pulse Resp BP Pulse Ox 97.9 F 83 18 121/78 96 10/05/18 04:33 10/05/18 04:33 10/05/18 04:33 10/05/18 04:33 10/05/18 04:33 General appearance: Present: no acute distress, well-nourished - EENT Eyes: Present: PERRL ENT: hearing intact, clear oral mucosa - Neck Neck: Present: supple, normal ROM - Respiratory Respiratory effort: normal Respiratory: bilateral: CTA - Cardiovascular Heart Sounds: Present: S1 & S2. Absent: rub, click - Extremities Extremities: pulses symmetrical, No edema Peripheral Pulses: within normal limits - Abdominal General gastrointestinal: Present: soft, non-tender, non-distended, normal bowel sounds Male genitourinary: Present: normal - Integumentary Integumentary: Present: clear, warm, dry - Musculoskeletal Musculoskeletal: gait normal, strength equal bilaterally - Psychiatric Psychiatric: appropriate mood/affect, intact judgment & insight - Neurologic Neurologic: CNII-XII intact, moves all extremities Plan Activity: no restrictions, no driving until cleared by PCP (or neurology) Weight Bearing Status: Full Weight Bearing Diet: regular Follow up with: STEPHANIE CALDERÓN MD [Primary Care Provider] - 3-5 Days Forms: Accompanied Note Prescriptions: Baclofen 20 mg PO TID #90 tablet diphenhydrAMINE [Benadryl CAP] 50 mg PO DAILY #30 capsule Butalb/Acetamin/Caff 50-325-40 [Fioricet 50-325-40] 1 tab PO Q4H PRN #10 tablet PRN Reason: Headache Nicotine [Habitrol] 14 mg TD QDAY #10 patch levETIRAcetam [Keppra TAB] 500 mg PO BID #60 tablet clonazePAM [Klonopin] 2 mg PO BID #60 tablet Gabapentin [Neurontin] 800 mg PO TID #90 tablet Paxil 20 mg PO DAILY #30 QUEtiapine [SEROquel] 25 mg PO DAILY #30 tablet
[2018-10-05] MEDS: PAXIL PO SCH (09:40)
[2018-10-05] MEDS: HABITROL TD SCH (09:40)
[2018-10-05] MEDS: KEPPRA PO SCH (09:40)
[2018-10-05 09:47] VITALS: BP 118/82
--- NOTE | 2018-10-05 17:09 | Consultation ---
ROOM NUMBER: [id number]. INDICATIONS: A 38-year-old white male presents to [facility] with a prior history of having problems with multiple seizures. He apparently several years back had had a serious head injury and was under treatment for this. He had seen a number of neurologists in the [facility] area including Dr. Bowling. From his description, he was initially placed on Keppra. This did not control his seizures, but there also seems to be an indication that he may have polysubstance abuse. He was then started on phenobarbital, Dilantin, again not controlling his seizures. He relates that at some point a doctor started him on Klonopin and Neurontin, which helped with seizure control. Over the last several days, he apparently missed several doses of Klonopin and then was observed to have a series of severe seizures while in the [facility] drug store. I contacted the patient about this. His overall story does not fit together very well in terms of the course of prescribing doctors and the decision making process. PHYSICAL EXAMINATION: My examination shows him to be alert, fully responsive. 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 Affect appropriate. Neck is supple. Gait is normal. No seizures are observed. Vital signs show the blood pressure to be 110/70, pulse rate 80, respirations 18. He is not febrile. He does not have meningismus. He has no signs of craniocervical trauma. IMPRESSION: This patient's overall history is very complicated. From reviewing the medicines, he has been taking that I would note, is taking buprenorphine, which courses to Subutex, which typically is an opioid addiction, but in addition, he has also been taking the Klonopin and Neurontin. I am not sure exactly how to comment about this. Klonopin is typically not used to treat seizures, but I have noted to be used in people that have had a history of opiate use and other conditions of similar nature. I would recommend the patient be discharged to psychiatric facility when possible restarted on the Klonopin, Neurontin, and let his treating psychiatrist deal with these issues as apparently he has had extremely extensive workups done previously at a number of medical centers. Oftentimes, patients that have intractable refractory seizures that have polysubstance abuse, the basis of their condition is related to the polysubstance abuse as opposed to epilepsy, stating a general accepted opinion. JOB# [id number] JIL/CAR
== END 2018-10-05 15:51 | disposition home or self-care (01) | DRG 101 ==
LOC: ED 19:42 → 4A 22:59
PROVIDERS: ADMIT Internal Medicine; ATTEND Hospitalist
DX: G40.909 Epilepsy, unspecified, not intractable, without status epilepticus (principal); F32.9 Major depressive disorder, single episode, unspecified; Z88.0 Allergy status to penicillin; Z88.8 Allergy status to other drugs, medicaments and biological substances
CPT/HCPCS: 36415; 70450; 72125; 80053; 80307; 80320; 81001; 82140; 82550; 84443; 85025; 93005; 93010; 99406; G0378; G0480; J1953; J2060; J7030